=== PATIENT | female | born 2000 | race Two or more races ===

== ENCOUNTER 2024-11-14 10:44 | Emergency (ER) | payer BC, OTHER ==
[~2024-11-14] VITALS: Ht 172.7 cm; Wt 59.1 kg
[2024-11-14 11:03] VITALS: PULSE 56; RESP 16; O2SAT 98
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
--- NOTE | 2024-11-14 11:49 | DVH ---
EXAM: CT LS SPINE WO CONTRAST INDICATION: pain/trauma COMPARISON: None TECHNIQUE: Multiple axial CT images of the lumbar spine were obtained using bone algorithm. Axial an d coronal reformatting was done. Bone and soft tissue windows were reviewed. Radiation Dose Information: CT Dose: CTDI volume is 8.61 mGy. Dose-length product is 352.24 mGy*cm FINDINGS: No CT evidence of acute fracture or traumatic mal-alignment. The visualized paraspinal soft tissues a re grossly unremarkable. The disc spaces are relatively preserved. There is multilevel degenerative change of the spine, with disc space narrowing, subchondral sclerosis, and marginal osteophyte formation. IMPRESSION: 1. No CT evidence of acute fracture or traumatic mal-alignment of the bony lumbar spine. 2. Radiation optimization: All CT scans at this facility use at least one of these dose optimization techniques: automated exposure control mA and/or kV adjustment per patient size (includes targeted e xams where dose is matched to clinical indication) or iterative reconstruction.
[2024-11-14] MEDS ORDERED: TRAM-626 PO (11:56)
[2024-11-14] MEDS: traMADol HCL 50 MG TAB PO ONE (12:42)
[2024-11-14 13:01] VITALS: BP 101/61; PULSE 84; RESP 18; TEMP 98.1; O2SAT 99
== END 2024-11-14 13:15 | disposition home or self-care (01) ==
LOC: ER 10:44
DX: S30.0XXA Contusion of lower back and pelvis, initial encounter (principal); F12.90 Cannabis use, unspecified, uncomplicated; Z90.49 Acquired absence of other specified parts of digestive tract; Z79.899 Other long term (current) drug therapy; X58.XXXA Exposure to other specified factors, initial encounter; Y93.55 Activity, bike riding; Y92.89 Other specified places as the place of occurrence of the external cause; Y99.8 Other external cause status
CPT/HCPCS: 72131